=== PATIENT | female | born 1990 | race Caucasian/White ===

== ENCOUNTER 2016-09-13 23:22 | Emergency (ER) | payer MEDICAID, OTHER ==
[~2016-09-13] VITALS: Ht 167.6 cm; Wt 72.8 kg
[~2016-09-13 23:22] MED LIST: ZITHTAB PO
[2016-09-13 23:28] VITALS: BP 121/78; PULSE 84; RESP 17; TEMP 98.2; O2SAT 97
[2016-09-13] MEDS ORDERED: CLAR500T PO (23:28)
[2016-09-13] MEDS ORDERED: MULTTAB67 PO (23:28)
[2016-09-13] MEDS ORDERED: SALI0.653 EACH NARE (23:48)
--- NOTE | 2016-09-13 23:49 | PD ---
HPI Chief Complaint: ENT Complaint Time Seen by Provider: 23:37 Travel History International Travel<30 days: No Contact w/Intl Traveler<30days: No Traveled to known affect area: No History of Present Illness HPI 25 yo F with decreased hearing bilaterally while currently taking clarithromycin for urgent care center diagnosis of sinusitis. she took augmentin previously with some benefit. zicam nasal spray was marginally helpful as was pseudophed. no fever. no otalgia or otorrhea. initially, 2 weeks prior, she had bandlike cephalgia and sinus tenderness leading to dx of sinusitis. no headache now. timing constant, severity moderate. PFSH Past Medical History Diminished Hearing: No Respiratory: Yes (hx pneumonia) ?: Not LMP: 08/14/2016 : 1 Para: 1 Social History Alcohol Use: No Tobacco Use: No Substance Use: No Allergies-Medications (Allergen,Severity, Reaction): Coded Allergies: No Known Allergies (Unverified , 09/13/16) Reported Meds & Prescriptions Reported Meds & Active Scripts Active Astepro Nasal [place] (Azelastine HCl) 0.15% [place] 1 [place] EACH NARE BID Saline Nasal [place] (Sodium Chloride) 0.65% [place] 2 [place] EACH NARE DIRECTED PRN Reported Multiple Vitamin 1 Tab 1 Tab PO DAILY Clarithromycin 500 Mg Tab 500 Mg PO BID Review of Systems General / Constitutional: No: Fever HENT: Positive: Headaches, Rhinitis, Rhinorrhea, Congestion, No: Sore Throat, Ear Discharge, Earache Physical Exam Narrative GENERAL: 25 yo F, WNWD, NAD SKIN: Warm and dry. HEAD: Atraumatic. Normocephalic. EYES: Pupils equal and round. No scleral icterus. No injection or drainage. ENT: No nasal bleeding or discharge. Mucous membranes pink and moist. Posterior oropharynx normal. Nasal mucosa grossly normal. No TTP about frontal or maxillary sinuses. NECK: Trachea midline. No JVD. CARDIOVASCULAR: Regular rate and rhythm. RESPIRATORY: No accessory muscle use. Clear to auscultation. Breath sounds equal bilaterally. GASTROINTESTINAL: Abdomen soft, non-tender, nondistended. Hepatic and splenic margins not palpable. PSYCHIATRIC: Appropriate mood and affect; insight and judgment normal. Data Data Last Documented VS Vital Signs Date Time Temp Pulse Resp B/P Pulse Ox O2 Delivery O2 Flow Rate FiO2 09/13/16 23:48 20 09/13/16 23:28 98.2 84 121/78 97 Orders Dexamethasone Inj (Decadron Inj) (09/14/16 00:00) MDM Medical Decision Making Medical Screen Exam Complete: Yes Emergency Medical Condition: Yes Medical Record Reviewed: Yes Differential Diagnosis acute sinusitis, aom, chronic sinusitis, otitis externa, post-nasal drip, allergies, pna, rhinitis Narrative Course symptoms most likely allergenic in nature. pt ok for discharge home. scripts as below. Diagnosis Primary Impression: Hearing decreased Qualified Code: H91.93 - Hearing decreased, bilateral Additional Impression: Sinus disorder Referrals: Primary Care Physician 1 week Additional Instructions: You have a choice when it comes to health care, and we are glad that you chose [facility]. Hopefully, we have met your expectations on today's visit. You are welcome to return to [facility] at any time, as we are committed to meeting the health care needs of our community. Med/Other Pt SpecificInfo: Prescription(s) given Scripts Azelastine Nasal [place] (Astepro Nasal [place])0.15% Spray1 [place] EACH NARE BID # 1 BOTTLE Ref 0 Prov:Salazar Tang MD 09/13/16 Saline Nasal [place] 0.65% Spray2 [place] EACH NARE DIRECTED PRN (NASAL CONGESTION) #1 BOTTLE Ref 0 Prov:Salazar Tang MD 09/13/16 Disposition: 01 DISCHARGE HOME Condition: Stable Salazar Tang MD Sep 13, 2016 23:49
[2016-09-13] MEDS ORDERED: ASTE0.15 EACH NARE (23:55)
[2016-09-14] MEDS ORDERED: DEXAMETHASONE SOD PHOS 4 MG/ML VIAL IM ONE
== END 2016-09-14 00:11 | disposition home or self-care (01) ==
LOC: PHED 23:22
DX: H91.93 Unspecified hearing loss, bilateral (principal)
CPT/HCPCS: 96372; 99284; J1100

== ENCOUNTER 2016-11-10 15:06 | Emergency (ER) | payer MEDICAID ==
[~2016-11-10] VITALS: Ht 167.6 cm; Wt 75.6 kg
[~2016-11-10 15:06] MED LIST changes: +MULTTAB67 PO; -ZITHTAB PO
[2016-11-10 15:08] VITALS: BP 118/59; PULSE 74; RESP 16; TEMP 98.1; O2SAT 98
[2016-11-10] MEDS ORDERED: FLUT1SPR5 EACH NARE (15:36)
--- NOTE | 2016-11-10 15:37 | PD ---
HPI Chief Complaint: 1515 Time Seen by Provider: 15:15 Travel History International Travel<30 days: No Contact w/Intl Traveler<30days: No Traveled to known affect area: No History of Present Illness HPI 26 -year-old female [facility] emergency department for sinus pressure and frontal headache times one day. Patient reports the onset was gradual and similar to previous headaches. She reports she's had some nasal congestion for the last 24 hours. She denies fever or chills. She denies purulent drainage from the nose. She denies nausea or vomiting. She reports the pain is localized to the frontal headache, nonradiating, constant, severity 4/10. No alleviating factors. PFSH Past Medical History Medical History: Denies Significant Hx Diminished Hearing: No Respiratory: Yes (HX PNEUMONIA) Tetanus Vaccination: Unknown Influenza Vaccination: No ?: Not LMP: 28 days ago : 1 Para: 1 Social History Alcohol Use: Yes (SOCIALLY) Tobacco Use: No Substance Use: No Allergies-Medications (Allergen,Severity, Reaction): Coded Allergies: No Known Allergies (Unverified , 11/10/16) Reported Meds & Prescriptions Reported Meds & Active Scripts Active Reported Multiple Vitamin 1 Tab 1 Tab PO DAILY Review of Systems Except as stated in HPI: all other systems reviewed are Neg General / Constitutional: No: Fever Eyes: No: Visual changes HENT: Positive: Headaches Cardiovascular: No: Chest Pain or Discomfort Respiratory: No: Shortness of Breath Gastrointestinal: No: Abdominal Pain Genitourinary: No: Dysuria Physical Exam Narrative GENERAL: Well-nourished, well-developed patient. SKIN: Focused skin assessment warm/dry. HEAD: Normocephalic. Mild TTP over frontal sinus. EYES: No scleral icterus. No injection or drainage. NECK: Supple, trachea midline. No JVD or lymphadenopathy. No meningismus CARDIOVASCULAR: Regular rate and rhythm without murmurs, gallops, or rubs. RESPIRATORY: Breath sounds equal bilaterally. No accessory muscle use. GASTROINTESTINAL: Abdomen soft, non-tender, nondistended. MUSCULOSKELETAL: No cyanosis, or edema. BACK: Nontender without obvious deformity. No CVA tenderness. Data Data Last Documented VS Vital Signs Date Time Temp Pulse Resp B/P Pulse Ox O2 Delivery O2 Flow Rate FiO2 11/10/16 15:08 98.1 74 16 118/59 98 MDM Medical Decision Making Medical Screen Exam Complete: Yes Emergency Medical Condition: Yes Differential Diagnosis Sinus headache, tension headache, sinusitis Narrative Course 26-year-old female with chief complaint of sinus pressure and frontal headache times one day. Her physical exam is reassuring. Patient has mild TTP over frontal sinuses. She reports she has been treated with antibiotics in the last several months which have not improved symptoms. She has not attempted any over -the-counter steroid nasal sprays or nonsedating antihistamines. Diagnosis Primary Impression: Sinus headache Referrals: Ear / Nose / Throat Specialist Additional Instructions: Take [id number] Motrin [id number] milligrams by mouth every 6-8 hours as needed for pain. Take [id number] Zyrtec or Claritin Use the nasal steroid spray as directed. Make an appointment for follow-up with ENT. Scripts Fluticasone Nasal [place] (Flonase Nasal [place])50 Mcg/Act [id number] Mcg EACH NARE BID #1 BOTTLE Ref 0 Prov:Ileana Dorantes 11/10/16 Disposition: 01 DISCHARGE HOME Condition: Stable Ileana Doratnes Nov 10, 2016 15:36
[2016-11-10] MEDS ORDERED: KETOROLAC TROMETHAMINE 60 MG/2 ML (IM) VIAL IM ONE (15:45)
== END 2016-11-10 15:52 | disposition home or self-care (01) ==
LOC: PHED 15:06
DX: R51 Headache (principal)
CPT/HCPCS: 96372; 99284; J1885

== ENCOUNTER 2017-02-05 10:14 | Emergency (ER) | payer MEDICAID ==
[~2017-02-05] VITALS: Ht 167.6 cm; Wt 73.0 kg
[~2017-02-05 10:14] MED LIST changes: +FLUT1SPR5 EACH NARE
[2017-02-05 10:18] VITALS: BP 122/82; PULSE 78; RESP 18; TEMP 97.9; O2SAT 99
[2017-02-05] MEDS ORDERED: PRED20 PO (10:52)
[2017-02-05] MEDS ORDERED: VENTAER INH (10:52)
--- NOTE | 2017-02-05 10:52 | PD ---
HPI Chief Complaint: Cold / Flu Symptoms Time Seen by Provider: 10:30 Travel History International Travel<30 days: No Contact w/Intl Traveler<30days: No Traveled to known affect area: No History of Present Illness HPI 26 year old female here with nasal congestion, cough & intermittent wheezing x 7 days. She has hx of allergic rhinitis & chronic sinusitis& asthma. she just completed a z-pack yesterday, but still has congestion & mild wheezing. symptoms severity is mild. No alleviating factors.LMP 01/30/17. PFSH Past Medical History Narrative Medical asthma Diminished Hearing: No Respiratory: Yes (HX PNEUMONIA) ?: Not LMP: LAST WEEK : 1 Para: 1 Social History Alcohol Use: Yes (SOCIALLY) Tobacco Use: No Substance Use: No Allergies-Medications (Allergen,Severity, Reaction): Coded Allergies: No Known Allergies (Unverified Adverse Reaction, Unknown, 02/05/17) Reported Meds & Prescriptions Reported Meds & Active Scripts Active Ventolin Hfa 18 GM Inh (Albuterol Sulfate) 90 Mcg/Act Aer 2 Puff INH Q4H PRN Prednisone 20 Mg Tab 40 Mg PO DAILY 5 Days Review of Systems Except as stated in HPI: all other systems reviewed are Neg Physical Exam Narrative GENERAL: alert & well appearing female. sitting on the stretcher working on her computer. SKIN: Warm and dry. HEAD: Normocephalic. no sinus tenderness. EYES: No scleral icterus. No injection or drainage. NECK: Supple, trachea midline. No JVD or lymphadenopathy. CARDIOVASCULAR: Regular rate and rhythm without murmurs, gallops, or rubs. RESPIRATORY: Breath sounds equal bilaterally. No accessory muscle use. GASTROINTESTINAL: Abdomen soft, non-tender, nondistended. MUSCULOSKELETAL: No cyanosis, or edema. BACK: Nontender without obvious deformity. No CVA tenderness. Data Data Last Documented VS Vital Signs Date Time Temp Pulse Resp B/P (MAP) Pulse Ox O2 Delivery O2 Flow Rate FiO2 02/05/17 10:18 97.9 78 18 122/82 (95) 99 MDM Medical Decision Making Medical Screen Exam Complete: Yes Emergency Medical Condition: Yes Differential Diagnosis URI, VIRAL ILLNESS, ALLERGIC RHINOSINUSITIS Narrative Course 26 year old female here with nasal congestion, cough & intermittent wheezing x 7 days. She has hx of allergic rhinitis & chronic sinusitis& asthma. she just completed a z-pack yesterday, but still has congestion & mild wheezing. She is well appearing. Her vital signs are stable. Her physical exam is benign. She will be treated with steroids & albuterol. Diagnosis Primary Impression: URI (upper respiratory infection) Qualified Codes: J06.9 - Acute upper respiratory infection, unspecified Referrals: mainframe programmer analyst Additional Instructions: make an appointment for follow up with an mainframe programmer analyst Scripts Albuterol 18 GM Inh (Ventolin Hfa 18 GM Inh) 90 Mcg/Act Aer 2 PUFF INH Q4H Y for SHORTNESS OF BREATH, #1 INHALER 0 Refills Prov: Ileana Dorantes 02/05/17 Prednisone (Prednisone) 20 Mg Tab 40 MG PO DAILY for 5 Days, #10 TAB 0 Refills Prov: Ileana Dorantes 02/05/17 Disposition: 01 DISCHARGE HOME Condition: Stable Ileana Dorantes Feb 05, 2017 10:52
== END 2017-02-05 11:00 | disposition home or self-care (01) ==
LOC: PHEFT 10:14
DX: J06.9 Acute upper respiratory infection, unspecified (principal); R05 Cough; R06.2 Wheezing; Z87.09 Personal history of other diseases of the respiratory system
CPT/HCPCS: 99284

== ENCOUNTER 2017-04-20 16:26 | Emergency (ER) | payer MEDICAID ==
[~2017-04-20 16:26] MED LIST changes: -FLUT1SPR5 EACH NARE; -MULTTAB67 PO; +PRED20 PO; +VENTAER INH
[2017-04-20 16:32] VITALS: BP 112/65; TEMP 97.3
[2017-04-20] MEDS ORDERED: MEDR4PAK PO (17:06)
[2017-04-20] MEDS ORDERED: PENI500T PO (17:06)
--- NOTE | 2017-04-20 17:06 | PD ---
HPI Chief Complaint: ENT Complaint Time Seen by Provider: 16:57 Travel History International Travel<30 days: No Contact w/Intl Traveler<30days: No Traveled to known affect area: No History of Present Illness HPI The patient is a 26-year-old female who presents emergency department for 1 day history of sore throat, cervical lymphadenopathy, pain with swallowing , and subjective fever. The patient has had subjective fever at home that is been intermittent with chills and sweats. She also notes enlarged tonsils that are red with white spots bilaterally. She also complains of bilateral cervical lymphadenopathy and headache. She denies any cough. She denies any nausea, vomiting, myalgias, arthralgias, dysuria, or rash. Symptoms are moderate without any alleviating or exacerbating factors. She does have a history of mononucleosis. PFSH Past Medical History Diminished Hearing: No Respiratory: Yes (HX PNEUMONIA) ?: Unknown LMP: 26 DAYS AGO : 1 Para: 1 Social History Alcohol Use: Yes (SOCIALLY) Tobacco Use: No Substance Use: No Allergies-Medications (Allergen,Severity, Reaction): Coded Allergies: No Known Allergies (Unverified Adverse Reaction, Unknown, 02/05/17) Reported Meds & Prescriptions Reported Meds & Active Scripts Active Ventolin Hfa 18 GM Inh (Albuterol Sulfate) 90 Mcg/Act Aer 2 Puff INH Q4H PRN Prednisone 20 Mg Tab 40 Mg PO DAILY 5 Days Review of Systems General / Constitutional: Positive: Fever, Chills HENT: Positive: Sore Throat, Neck Pain, No: Congestion Respiratory: No: Cough Gastrointestinal: No: Nausea, Vomiting, Diarrhea, Abdominal Pain Musculoskeletal: No: Myalgias, Arthralgias Skin: No Rash Physical Exam Narrative GENERAL: Awake, alert, pleasant 26 year-old female who appears her stated age and is in no acute respiratory distress. SKIN: Focused skin assessment warm/dry. HEAD: Atraumatic. Normocephalic. EYES: Pupils equal and round. No scleral icterus. No injection or drainage. ENT: No nasal bleeding or discharge. Enlarged tonsils bilaterally with erythema and white exudate. TMs are translucent. EACs are clear. NECK: Trachea midline. No JVD. Bilateral anterior cervical lymphadenopathy. MUSCULOSKELETAL: No obvious deformities. No clubbing. No cyanosis. No edema. NEUROLOGICAL: Awake and alert. No obvious cranial nerve deficits. Motor grossly within normal limits. Normal speech. PSYCHIATRIC: Appropriate mood and affect; insight and judgment normal. Data Data Last Documented VS Vital Signs Date Time Temp Pulse Resp B/P (MAP) Pulse Ox O2 Delivery O2 Flow Rate FiO2 04/20/17 16:32 97.3 94 20 112/65 (81) [facility] Medical Decision Making Medical Screen Exam Complete: Yes Emergency Medical Condition: Yes Medical Record Reviewed: Yes Differential Diagnosis Differential diagnosis includes tonsillitis, pharyngitis, URI, viral syndrome, influenza, mononucleosis, adenovirus. Narrative Course The patient has had subjective fevers with sore throat revealing a large erythematous tonsils with white exudate as well as anterior cervical lymphadenopathy. The patient has no cough or rhinitis. The patient will be treated for strep tonsillitis. I do discussion with the patient regarding an injection of Decadron and Bicillin LA versus outpatient treatment with Medrol Dosepak and pen VK. The patient would prefer oral treatment at home. The patient will be discharged home, is advised return if symptoms worsen or progress. Diagnosis Primary Impression: Tonsillitis with exudate Patient Instructions: General Instructions Additional Instructions: Medications as directed. Follow-up with her primary physician. Return if symptoms worsen or progress. Alternate Tylenol and Motrin for pain and fever. Med/Other Pt SpecificInfo: Prescription(s) given Scripts Methylprednisolone Dosepak (Medrol Dosepak) 4 Mg Dspk 4 MG PO DIRECTED, #1 DSPK 0 Refills Per Pharmacist direction Prov: Cortez Bell MD 04/20/17 Penicillin V Potassium (Penicillin V Potassium) 500 Mg Tab 500 MG PO Q6H for Infection for 10 Days, #40 TAB 0 Refills Prov: Cortez Bell MD 04/20/17 Disposition: DISCHARGE HOME Condition: Stable Cortez Bell MD Apr 20, 2017 17:06
== END 2017-04-20 17:29 | disposition home or self-care (01) ==
LOC: PHED 16:26
DX: J03.90 Acute tonsillitis, unspecified (principal)
CPT/HCPCS: 99284